=== PATIENT | male | born 1995 | race Asian ===

== ENCOUNTER 2022-09-28 15:35 | Emergency (ER) | payer OTHER, SELFPAY ==
[2022-09-28 15:55] VITALS: BP 142/73; PULSE 62; RESP 16; TEMP 36.8; O2SAT 99
--- NOTE | 2022-09-28 16:12 | PC.NURSE ---
1610: Attempted to give pt his Boostrix, pt wanted to wait and think about it. PC TECH notified.
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
== END 2022-09-28 16:49 | disposition home or self-care (01) ==
PROVIDERS: Emergency Provider Nurse Practitioner Family
DX: S09.90XA Unspecified injury of head, initial encounter (principal); S01.81XA Laceration without foreign body of other part of head, initial encounter; W20.8XXA Other cause of strike by thrown, projected or falling object, initial encounter
CPT/HCPCS: 12011; 99202; G0463

== ENCOUNTER 2022-10-05 14:54 | Emergency (ER) | payer OTHER, SELFPAY ==
[2022-10-05 15:02] VITALS: BP 145/64; PULSE 70; RESP 16; TEMP 36.6; O2SAT 99
--- NOTE | 2022-10-05 15:11 | ED.WOUNDLAC ---
HPI - Wound/Laceration General Chief Complaint: Wound/Laceration Stated Complaint: stitches removal Time Seen by Provider: 10/05/22 15:11 Source: patient Mode of arrival: ambulatory Limitations: no limitations History of Present Illness HPI narrative: 26 year old male presented for suture removal to the left forehead. Five sutures were placed on 09/28/2022. He denies redness, swelling, pus or fevers to the site. Related Data Home Medications Medication Instructions Recorded Confirmed No Home Medications 09/28/22 10/05/22 Allergies Allergy/AdvReac Type Severity Reaction Status Date / Time No Known Allergies Allergy Verified 09/28/22 15:55 Review of Systems Review of Systems: CONSTITUTIONAL: Denies body aches, fever, chills, or sweats. EYES: Denies visual changes, redness, or discharge. ENT: Denies rhinorrhea, congestion CARDIOVASCULAR: Denies chest pain, palpitations, or edema. RESPIRATORY: Denies cough or dyspnea. GASTROINTESTINAL: Denies abdominal pain, nausea, vomiting, or diarrhea. SKIN: Per HPI MUSCULOSKELETAL: Denies back pain, joint pain, or myalgia. NEUROLOGIC: Denies headache, numbness, tingling, or weakness. PMFSH Comments At time of signature, I have reviewed and agree with nursing past medical, surgical, social and family history unless otherwise noted. Please see nursing chart for further information. There is no relevant family history pertinent to the presenting complaint Exam Narrative: GENERAL: Well-appearing HEAD: Normocephalic, atraumatic. EYES: conjunctivae clear, and EOMI. ENT: Mucous membranes moist. Oropharynx without edema, erythema or lesions. NECK: Supple. No lymphadenopathy CHEST: Clear to auscultation. HEART: Regular rate and rhythm. SKIN: Warm, dry. Approximately 1 cm laceration to the left forehead with [address]. Wound edges are well approximated, appears healing without infection. NEURO: Alert and oriented x3. Course Course Emergency Course: Patient is aware of diagnosis, understands and agrees to treatment plan. Anticipatory guidance given. Patient agrees to follow-up as directed and is aware of reasons to seek care at the emergency department. Portions of this record may have been created with voice recognition software Level of Care: Express Care Visit Vital Signs Vital signs: Vital Signs Temperature 97.9 F 10/05/22 15:02 Pulse Rate 70 10/05/22 15:02 Respiratory Rate 16 10/05/22 15:02 Blood Pressure 145/64 H 10/05/22 15:02 Pulse Oximetry 99 10/05/22 15:02 Oxygen Delivery Room Air 10/05/22 15:02 Temperature 97.9 F 10/05/22 15:02 Pulse Rate 70 10/05/22 15:02 Respiratory Rate 16 10/05/22 15:02 Blood Pressure 145/64 H 10/05/22 15:02 Pulse Oximetry 99 10/05/22 15:02 Oxygen Delivery Room Air 10/05/22 15:02 Reviewed Procedures Other Procedure Procedure 1: Other Procedure: Five sutures removed without difficulty from the left forehead. Patient tolerated well. Triple antibiotic applied and left open to air. MDM - Wound/Laceration MDM Narrative Medical decision making narrative: Advised supportive measures and signs/symptoms to go to the ER. Pt is appropriate for outpt treatment and f/u. Differential Diagnosis Differential diagnosis: Likely laceration, abscess and avulsion of skin Discharge Plan Discharge Clinical Impression: Encounter for removal of sutures Patient Disposition: Home, Self-Care Condition: Stable Additional Instructions: Sutures removed today. Keep site clean and dry. Watch for redness, swelling, pus or drainage. Go to the ER for worsening symptoms or concerns. Prescriptions: No Action No Home Medications Follow-up/Referrals: UNKNOWN,DOCTOR [Primary Care Provider] - Time of Disposition: 15:26
== END 2022-10-05 15:30 | disposition home or self-care (01) ==
PROVIDERS: Emergency Provider Nurse Practitioner Family
DX: Z48.02 Encounter for removal of sutures (principal)
CPT/HCPCS: 99211; G0463